=== PATIENT | male | born 1985 ===

== ENCOUNTER 2024-02-17 12:08 | Emergency (ER) | payer OTHER, SELFPAY ==
--- NOTE | ~2024-02-17 | XR_ITS ---
EXAMINATION: XR FINGER, LEFT CLINICAL INFORMATION: Index finger laceration COMPARISON: None available. TECHNIQUE: Three views of the left index finger. FINDINGS: Subtle soft tissue irregularity adjacent to the second PIP joint is consistent with provided history of laceration. There are a few punctate soft tissue densities in this region consistent with foreign bodies. There is soft tissue swelling this area. There is no underlying osseous injury. Other visualized portions of the left hand are unremarkable. XR/XR finger LT min 2V IMPRESSION: Soft tissue laceration with punctate foreign bodies within the soft tissues adjacent to the second PIP joint. No underlying osseous injury. Electronically signed by: Pal Lacey MD 02/17/2024 03:20 PM EDT
[2024-02-17 12:32] VITALS: BP 139/87; PULSE 58; RESP 16; TEMP 36.6; O2SAT 98; BMI 28.0
--- NOTE | 2024-02-17 12:41 | ED.WOUNDLAC ---
HPI - Wound/Laceration General Chief Complaint: Wound/Laceration Stated Complaint: l finger lac at work Time Seen by Provider: 02/17/24 13:02 Source: patient Mode of arrival: ambulatory Limitations: no limitations History of Present Illness ED Provider: SON CARRANZA PA-C HPI narrative: 39 year old male with no significant pmhx presents to the ED today for evaluation of laceration to left index finger sustained while using a bandsaw at work [employer] in ED. Reports rinsing the laceration out [employer]. States his tetanus is not UTD. Denies numbness/tingling/weakness to the finger. No other complaints in ED. Related Data Previous Rx's ?Medication ?Instructions ?Recorded amoxicillin 875 mg-potassium 1 tab PO BID 7 days #14 tabs 02/17/24 clavulanate 125 mg tablet Allergies Allergy/AdvReac Type Severity Reaction Status Date / Time No Known Allergies Allergy Verified 02/17/24 12:34 Review of Systems Review of Systems: Constitutional: No fever, chills, fatigue, night sweats, weight changes ENT/Mouth: No ear pain, hearing loss, nasal congestion, sinus pain, rhinorrhea, sore throat Eyes: No eye pain, swelling, redness, vision changes, discharge Cardio: No chest pain, palpitations, NDIAYE, orthopnea, peripheral edema Pulm: No SOB, cough, sputum, wheezing, dyspnea, hemoptysis GI: No nausea, vomiting, hematemesis, abdominal pain, diarrhea, constipation, hematochezia, melena : No irregular bleeding, dysuria, frequency, urgency, hesitancy, hematuria, flank pain, urinary flow changes, urinary incontinence or retention MSK: No back pain, neck pain, joint pain, myalgias Skin: No lesions, rashes, +finger laceration Neuro: No weakness, numbness, paresthesias, LOC, dizziness, headache Psych: No anxiety/panic, depression, SI/HI, AH/VH All other systems reviewed and are negative. [facility] Past Medical History Attestation statement: The following information was validated with the patient. Source: old records reviewed and nursing notes reviewed Social History Social History Advance Directives: No Do you have a plan to hurt others: No Plan Physical Exam Vital Signs: Vital Signs: Last Vital Signs Temp 97.5 F 02/17/24 14:50 Pulse 59 02/17/24 14:50 Resp 14 02/17/24 14:50 BP 132/77 02/17/24 14:50 Pulse Ox 99 02/17/24 14:50 O2 Del Method Room Air 02/17/24 14:50 BMI result Body Mass Index 28.0 vital signs stable General: Well appearing, in no acute distress. Skin: Warm, dry, intact. No rashes or lesions. Head: Normocephalic, atraumatic. Cardiac: Chest wall symmetric. RRR. Lungs: Normal respiratory effort without accessory muscle use Ext: +3cm laceration noted to PIP of left index finger, bleeding controlled. no obvious FB. finger strength intact. FROM to dip/pip/mcp. finger to thumb opposition intact. 2+ radial/ ulnar pulse intact. Neuro: AOx3. Normal speech. Ambulating with steady gait. Psych: Appropriate mood and affect. Responds appropriately to questions. Course Course Course Narrative: This is a Rapid Medical Examination (RME) performed by Valdo Isaac PA-C in triage. Full HPI, ROS, assessment and treatment plan per primary provider in the Main ED. 39 yo male presents to the ER for evaluation of left index finger laceration on a band saw at work. FROM of the digit. actively bleeding. Plan: XR finger, tdap, lac repair Reevaluation(s) Reevaluation #1: [id number] -- xr finger showing soft tissue laceration with punctate FB within the soft tissues adjacent to second PIP joint. no underlying osseos injury. > patient's finger soaked in betadine/ saline x20 minute. I attempted wash out with saline to remove punctate FBs. could not directly visualize. laceration repaired with 7 sutures. bleeding controlled. patient tolerated well. will start him on augmentin for possible retained fb. advised to return in 10-14 days for suture removal. tdap updated today. Patient has remained stable throughout ED visit today. Discussed worrisome signs and symptoms and when to return to the ED. All questions answered at this time. Patient is agreeable with disposition and stable for discharge. Medications Administered Discontinued Medications Generic Name Dose Route Start Last Admin Trade Name Freq PRN Reason Stop Dose Admin Diphtheria/Tetanus/Acell Pertussis 0.5 ml 02/17/24 12:41 02/17/24 13:13 Diphth,Pertus(Acell),Tet Adult 0.5 Ml Syringe IM 02/17/24 12:42 0.5 ml .ONCE ONE Administration Lidocaine HCl 5 ml 02/17/24 13:39 02/17/24 14:11 Lidocaine Hcl 1 % Mpf 5 Ml Vial INFILTRATI 02/17/24 13:40 5 ml ONCE ONE Administration Lidocaine HCl 5 ml 02/17/24 13:39 02/17/24 14:11 Lidocaine Hcl 1 % Mpf 5 Ml Vial INFILTRATI 02/17/24 13:40 5 ml ONCE ONE Administration Medical Decision Making Medical Decision Making MDM Narrative: 39 year old male with no significant pmhx presents to the ED today for evaluation of laceration to left index finger sustained while using a bandsaw at work [employer] in ED. Vital signs stable. afebrile. 3cm laceration noted to PIP of left index finger, bleeding controlled. no obvious FB. finger strength intact. FROM to dip/pip/mcp. finger to thumb opposition intact. 2+ radial/ ulnar pulse intact. sensation intact to light touch. cap refill <2 seconds. Differential diagnosis includes laceration, abrasion, fracture, retained FB. Unlikely tendon/ligament injury, nv compromise, threat to limb. Plan for xr, tdap booster, laceration repair. Differential Diagnosis Differential Diagnoses: The differential diagnosis associated with the presentation includes as above Admission/Observation not indicated. Independent Interpretation I performed an independent interpretation of an: Plain X-Ray Interpretation: xr left index finger without noted fracure, small punctate fbs, agree with radiologist's interpretation. Radiology Impression Discussion of test interpretation with radiology: I have reviewed the radiologist's reading. Radiologist Impression: EXAMINATION: XR FINGER, LEFT CLINICAL INFORMATION: Index finger laceration COMPARISON: None available. TECHNIQUE: Three views of the left index finger. FINDINGS: Subtle soft tissue irregularity adjacent to the second PIP joint is consistent with provided history of laceration. There are a few punctate soft tissue densities in this region consistent with foreign bodies. There is soft tissue swelling this area. There is no underlying osseous injury. Other visualized portions of the left hand are unremarkable. XR/XR finger LT min 2V IMPRESSION: Soft tissue laceration with punctate foreign bodies within the soft tissues adjacent to the second PIP joint. No underlying osseous injury. Electronically signed by: Pal Lacey MD 02/17/2024 03:20 PM EDT Prescription Management I considered prescription management with: Pain Medication and Antibiotic (augmentin) Social Determinants Patient?s care significantly limited by Social Determinants of Health including: Other Social Determinant of Health Procedures Laceration Laceration 1: Site: other (finger) Side (If applicable): left Size (cm): 3 Description: linear Depth: simple, single layer Local Anesthetic: lidocaine 1% Amount of anesthesia used (mL): 10 Pre-repair: wound explored, irrigated extensively and deep structures intact Size (cm): 4-0 Number of sutures: 7 Technique: simple, interrupted Critical Care Time Critical Care Time Critical Care Time: No Discharge Plan Discharge Clinical Impression: Laceration Patient Disposition: Home, Self-Care Instructions: Care For Your Stitches (ED), Laceration (ED), Stitches Removal (ED) Additional Instructions: You have been evaluated in the Emergency Department today for a laceration to your left pointer finger. Your laceration was repaired in the ED with sutures.? Please keep the area surrounding the laceration clean and dry. Please keep the area out of the sunlight for the next 6 months to help prevent scarring.? If you develop redness or swelling at the site of your laceration please come back to the ER for a wound check. Your tetanus was updated today. Augmentin is an antibiotic that has been sent to your pharmacy. Take this as prescribed for the next 7 days. On Augmentin, softer bowel movements are to be expected. Call your provider if you move your bowels more than 4 times a day, your bowel movements are almost all liquid, or you get a rash.? I recommend you take 600mg ibuprofen every 6 hours or tylenol 650mg every 6 hours as needed for pain. If needed, you can alternate these medications so that you take one medication every 3 hours. For example, at noon take ibuprofen, then at 3pm take tylenol, then at 6pm take ibuprofen. Please follow up with your primary care physician in 10-14 days for suture removal. You can also return to the ER or another urgent care facility for this service. Return to the Emergency Department if you experience discharge from your laceration, redness around your laceration, warmth around your laceration, fever, vomiting, numbness, tingling, or any other concerning symptoms. In the case of an emergency call 911. As this was a work-related injury, you have been provided with contact information for [facility]. Please follow up with them. Prescriptions: New amoxicillin-pot clavulanate 875-125 mg tablet 1 tab PO BID 7 Days Qty: 14 0RF Referrals: [facility] [Outside] Discharge Date/Time: 02/17/24 14:55 Print Language: Hebrew
[2024-02-17] MEDS: Diphth,Pertus(ACell),Tet Adult 0.5 ML SYRINGE IM (13:13)
[2024-02-17] MEDS: Lidocaine HCl 1 % MPF 5 ML VIAL INFILTRATI ×2 (14:11)
--- NOTE | 2024-02-17 14:17 | MHC.EDTECH ---
Nonstick telfa gauze applied and wrapped with gauze to finger. Tolerated well
[2024-02-17 14:50] VITALS: BP 132/77; PULSE 59; RESP 14; TEMP 36.4; O2SAT 99
== END 2024-02-17 14:55 | disposition home or self-care (01) ==
PROVIDERS: Emergency Provider Emergency Medicine
DX: S61.211A Laceration without foreign body of left index finger without damage to nail, initial encounter (principal); W31.2XXA Contact with powered woodworking and forming machines, initial encounter; Y93.89 Activity, other specified; Y92.89 Other specified places as the place of occurrence of the external cause; Y99.0 Civilian activity done for income or pay; Z23 Encounter for immunization; M79.642 Pain in left hand
CPT/HCPCS: 12042; 73140; 90471; 90715; 99282; 99284; J2003